=== PATIENT | female | born 1990 | race Caucasian/White ===

== ENCOUNTER 2019-08-14 16:09 | Emergency (ER) | payer MEDICAID ==
[~2019-08-14] VITALS: Ht 167.6 cm; Wt 113.6 kg
[2019-08-14] MEDS ORDERED: ACETAMINOPHEN 500 MG TABLET PO ONE (16:45)
[2019-08-14] MEDS ORDERED: KETOROLAC TROMETHAMINE 30 MG/ML VIAL IM ONE (18:15)
[2019-08-14] MEDS ORDERED: OxyCODONE HCL 5 MG IR TABLET PO ONE (18:15)
[2019-08-14 18:31] LABS: APPEARANCE,URINE CLEAR (CLEAR); BILIRUBIN,URINE NEGATIVE (NEGATIVE); GLUCOSE, URINE (UA) NEGATIVE (NEGATIVE); KETONES,URINE NEGATIVE (NEGATIVE); LEUKOCYTE ESTERASE ,URINE NEGATIVE (NEGATIVE); NITRATE,URINE NEGATIVE (NEGATIVE); OCCULT BLOOD,URINE TRACE (NEGATIVE); PROTEIN,URINE NEGATIVE (NEGATIVE); UROBILINOGEN,URINE 0.2 mg/dL (<=1.0)
[2019-08-14 19:09] LABS: WBC,URINE 0-2 /HPF (0-5)
[2019-08-14 19:10] LABS: BACTERIA,URINE Few /HPF (None Seen)
[2019-08-14 19:11] LABS: SQUAMOUS EPITHELIAL CELL,UR Moderate /LPF (None Seen)
[2019-08-14] MEDS ORDERED: LIDOCAINE 5% TRANSDERMAL PATCH TD ONE (19:45)
[2019-08-14] MEDS ORDERED: DIAZEPAM 5 MG TABLET PO ONE (19:45)
[2019-08-14 20:00] VITALS: BP 129/72
== END 2019-08-14 21:13 | disposition home or self-care (01) ==
LOC: EMS 16:12
DX: S39.012A Strain of muscle, fascia and tendon of lower back, initial encounter (principal); X58.XXXA Exposure to other specified factors, initial encounter; Y93.89 Activity, other specified; Y92.89 Other specified places as the place of occurrence of the external cause; Y99.8 Other external cause status
CPT/HCPCS: 36415; 81001; 84703; 96372; 99284; J1885